=== PATIENT | male | born 1945 | race Caucasian/White ===

== ENCOUNTER 2018-01-24 14:13 | Observation (INO) ==
[2018-01-24] MEDS ORDERED: ALBUTEROL 2.5 MG/3 ML NEB RESP TX STA (15:05)
[2018-01-24 16:23] LABS: Basophils % 0.3 % (0.0-0.8); Eosinophils # 0.1 10*3/uL (0.0-0.87); Hematocrit 27.6 VOL% (42.0-52.0); Hemoglobin 8.7 GM/DL (14.0-18.0); Immature Granulocytes % 0.3 %; Immature Granulocytes Absolute 0.04 #; Lymphocytes # 0.9 10*3/uL (1.4-4.0); Lymphocytes % 8.1 % (21.2-54.2); Mean Corpuscular HGB Conc 31.5 GM/DL (32-36); Mean Corpuscular Hemoglobin 33 PG (27-34); Mean Corpuscular Volume 103.4 FL (87-102); Mean Platelet Volume 11.5 FL (9.6-12.0); Monocytes # 0.7 10*3/uL (0.11-0.8); Monocytes % 6.3 % (1.7-12.7); Neutrophils # 9.7 10*3/uL (1.4-7.4); Platelet Count 223 T/CUMM (130-400); Red Blood Count 2.67 MC/CUMM (3.8-5.5); Red Cell Distribution Width 14.9 % (9.3-17.3); White Blood Count 11.6 T/CUMM (4-12)
[2018-01-24 17:02] LABS: Albumin 3.5 G/DL (3.4-5.0); Bilirubin,Total 0.8 MG/DL (0.2-1.0); Osmolality,Calculated 286.3 MOS/KG (273-304); Potassium 4.5 MMOL/L (3.5-5.1); Total Protein 6.2 G/DL (6.4-8.3)
[2018-01-24 17:06] LABS: Apearance,Urine CLEAR (Clear); Bilirubin,Urine Negative (Negative); Blood, Urine Negative (Negative); Glucose,Urine (UA) >=500 mg/dL (Negative); Hyaline Casts,Urine 3 /LPF (0-3); Ketones,Urine Negative (Negative); Mucus,Urine Occasional /LPF (Occasional); Nitrite,Urine Negative (Negative); Protein,Urine Negative; RBC,Urine 1 /HPF (0-4); Squamous Epithelial Cell,Urine Occasional /HPF (0-10); Urine Color Yellow (Yellow); Urine Specific Gravity 1.018 (1.001-1.035); Urine Urobilinogen < 2.0 EU/DL (0.2-1.0); WBC,Urine 1 /HPF (0-6)
[2018-01-24] MEDS ORDERED: LEVOFLOXACIN INJ 500 MG in PREMIX 1 EACH IV STA (17:40)
[2018-01-24] MEDS ORDERED: ACETAMINOPHEN 325 MG TABLET PO PRN (17:43)
[2018-01-24] MEDS ORDERED: MORPHINE 4 MG/1 ML VIAL IV PRN (17:43)
[2018-01-24] MEDS ORDERED: ONDANSETRON 4 MG/2 ML VIAL IV PRN (17:43)
[2018-01-24] MEDS ORDERED: ALBUTEROL 2.5 MG/3 ML NEB RESP TX PRN (17:46)
[2018-01-24] MEDS ORDERED: GLUCAGON 1 MG VIAL IM PRN (17:48)
[2018-01-24] MEDS ORDERED: DEXTROSE 50% 25 GM/50 ML VIAL IV PRN (17:48)
[2018-01-24] MEDS: ENOXAPARIN 40 MG/0.4 ML SYRINGE SUBCUT SCH (18:50)
[2018-01-24] MEDS: SODIUM CHLORIDE 0.45% 1,000 ML IV SCH (19:00)
[2018-01-24] MEDS: ALBUTEROL 2.5 MG/3 ML NEB RESP TX SCH (19:16)
[2018-01-24] MEDS: DOCUSATE SODIUM 100 MG CAPSULE PO SCH (21:10)
[2018-01-24] MEDS ORDERED: METHOCARBAMOL 500 MG TABLET PO PRN (21:43)
[2018-01-24] MEDS ORDERED: LORATADINE 10 MG TABLET PO PRN (21:45)
[2018-01-24] MEDS ORDERED: ACETAMINOPHEN/CODEINE 300-30 MG TABLET PO PRN (21:49)
[2018-01-24] MEDS ORDERED: ZALEPLON 5 MG CAPSULE PO PRN (21:51)
[2018-01-24] MEDS ORDERED: ALBUTEROL/IPRATROPIUM 3 ML NEB RESP TX PRN (21:52)
[2018-01-24] MEDS: INSULIN LISPRO 100 UNIT/ML SUBCUT SCH (22:05)
[2018-01-24] MEDS: methylPREDNISolone SOD SUC 40 MG/1 ML VIAL IV SCH (22:26)
[2018-01-24] MEDS: SIMVASTATIN 10 MG TABLET PO SCH (22:27)
[2018-01-24] MEDS: ESCITALOPRAM 10 MG TABLET PO SCH (22:27)
[2018-01-24] MEDS: GABAPENTIN 600 MG TABLET PO SCH (22:27)
[2018-01-25] MEDS: ALBUTEROL 2.5 MG/3 ML NEB RESP TX SCH ×4 (00:22→20:14)
[2018-01-25] MEDS: INSULIN LISPRO 100 UNIT/ML SUBCUT SCH ×4 (08:52→21:09)
[2018-01-25] MEDS: ALLOPURINOL 100 MG TABLET PO SCH ×3 (08:53→21:09)
[2018-01-25] MEDS: FINASTERIDE 5 MG TABLET PO SCH (08:54)
[2018-01-25] MEDS: GABAPENTIN 600 MG TABLET PO SCH ×2 (08:54→21:08)
[2018-01-25] MEDS: LOSARTAN 50 MG TABLET PO SCH (08:54)
[2018-01-25] MEDS: DOCUSATE SODIUM 100 MG CAPSULE PO SCH ×2 (08:55→21:09)
[2018-01-25] MEDS: CYANOCOBALAMIN 100 MCG TABLET PO SCH (08:55)
[2018-01-25] MEDS: PANTOPRAZOLE 40 MG TABLET PO SCH (08:55)
[2018-01-25] MEDS: glipiZIDE 10 MG TABLET PO SCH ×2 (08:55→16:27)
[2018-01-25] MEDS: TAMSULOSIN 0.4 MG CAPSULE PO SCH (08:55)
[2018-01-25] MEDS: POTASSIUM CITRATE 10 MEQ TABLET PO SCH ×3 (08:56→16:27)
[2018-01-25] MEDS: FLUTICASONE 50 MCG NASAL SPRAY 16 GM BOTTLE BOTH NARES SCH (11:35)
[2018-01-25] MEDS: methylPREDNISolone SOD SUC 40 MG/1 ML VIAL IV SCH ×2 (11:35→21:13)
[2018-01-25] MEDS ORDERED: metFORMIN 500 MG TABLET PO SCH (17:00)
[2018-01-25] MEDS ORDERED: LEVOFLOXACIN INJ 500 MG in PREMIX 1 EACH IV SCH (18:00)
[2018-01-25] MEDS: SODIUM CHLORIDE 0.45% 1,000 ML IV SCH (18:02)
[2018-01-25] MEDS: SIMVASTATIN 10 MG TABLET PO SCH (21:09)
[2018-01-25] MEDS: ESCITALOPRAM 10 MG TABLET PO SCH (21:09)
[2018-01-25] MEDS: ENOXAPARIN 40 MG/0.4 ML SYRINGE SUBCUT SCH (21:09)
[2018-01-26] MEDS: ALBUTEROL 2.5 MG/3 ML NEB RESP TX SCH ×3 (00:55→13:30)
[2018-01-26 05:59] LABS: Basophils % 0.1 % (0.0-0.8); Hemoglobin 8.6 GM/DL (14.0-18.0); Immature Granulocytes % 0.6 %; Immature Granulocytes Absolute 0.05 #; Lymphocytes # 0.4 10*3/uL (1.4-4.0); Mean Corpuscular HGB Conc 30.7 GM/DL (32-36); Mean Corpuscular Hemoglobin 32 PG (27-34); Mean Corpuscular Volume 104.1 FL (87-102); Mean Platelet Volume 11.9 FL (9.6-12.0); Monocytes # 0.1 10*3/uL (0.11-0.8); Monocytes % 1.2 % (1.7-12.7); Neutrophils # 7.2 10*3/uL (1.4-7.4); Neutrophils % 93.1 % (38.7-73.9); Platelet Count 228 T/CUMM (130-400); Red Blood Count 2.69 MC/CUMM (3.8-5.5); Red Cell Distribution Width 14.5 % (9.3-17.3); White Blood Count 7.8 T/CUMM (4-12)
[2018-01-26 06:21] LABS: Osmolality,Calculated 294.5 MOS/KG (273-304); Potassium 4.5 MMOL/L (3.5-5.1)
[2018-01-26 06:29] LABS: Hypochromasia Slight; Lymphocytes 8 % (20-55); Platelet Estimate Normal; Segmented Neutrophils 90 % (50-85)
[2018-01-26 06:30] LABS: Total Cells Counted 100
[2018-01-26] MEDS: INSULIN LISPRO 100 UNIT/ML SUBCUT SCH ×2 (08:23→12:28)
[2018-01-26] MEDS: FINASTERIDE 5 MG TABLET PO SCH (08:24)
[2018-01-26] MEDS: CYANOCOBALAMIN 100 MCG TABLET PO SCH (08:24)
[2018-01-26] MEDS: GABAPENTIN 600 MG TABLET PO SCH (08:24)
[2018-01-26] MEDS: DOCUSATE SODIUM 100 MG CAPSULE PO SCH (08:25)
[2018-01-26] MEDS: LOSARTAN 50 MG TABLET PO SCH (08:25)
[2018-01-26] MEDS: TAMSULOSIN 0.4 MG CAPSULE PO SCH (08:25)
[2018-01-26] MEDS: PANTOPRAZOLE 40 MG TABLET PO SCH (08:25)
[2018-01-26] MEDS: glipiZIDE 10 MG TABLET PO SCH (08:26)
[2018-01-26] MEDS: ALLOPURINOL 100 MG TABLET PO SCH (08:26)
[2018-01-26] MEDS: FLUTICASONE 50 MCG NASAL SPRAY 16 GM BOTTLE BOTH NARES SCH (08:27)
[2018-01-26] MEDS: POTASSIUM CITRATE 10 MEQ TABLET PO SCH (08:27)
[2018-01-26 12:18] VITALS: BP 136/61
[2018-01-26] MEDS: methylPREDNISolone SOD SUC 40 MG/1 ML VIAL IV SCH (12:28)
== END 2018-01-26 14:00 | disposition home or self-care (01) ==
LOC: N.EDINP 14:13 → N.ED 14:13 → N.EDINP 18:58 → N.TELES 19:14
PROVIDERS: ADMIT Family Medicine; ATTEND Family Medicine

== ENCOUNTER 2022-01-31 08:40 | Observation (INO) ==
[2022-01-31 09:02] LABS: Basophils # 0.1 10*3/uL (0.0-0.2); Basophils % 0.7 % (0.0-0.8); Eosinophils # 0.2 10*3/uL (0.0-0.87); Eosinophils % 2.5 % (0.00-10.9); Hematocrit 23.6 VOL% (42.0-52.0); Hemoglobin 7.3 GM/DL (14.0-18.0); Immature Granulocytes Absolute 0.08 #; Lymphocytes # 0.4 10*3/uL (1.4-4.0); Lymphocytes % 4.4 % (21.2-54.2); Mean Corpuscular HGB Conc 30.9 GM/DL (32-36); Mean Corpuscular Volume 93.7 FL (87-102); Mean Platelet Volume 11.2 FL (9.6-12.0); Monocytes # 0.5 10*3/uL (0.11-0.8); Monocytes % 6.3 % (1.7-12.7); Neutrophils % 85.1 % (38.7-73.9); Platelet Count 374 T/CUMM (130-400); Red Blood Count 2.52 MC/CUMM (3.8-5.5); Red Cell Distribution Width 14.6 % (9.3-17.3); White Blood Count 8.2 T/CUMM (4-12)
[2022-01-31 09:21] LABS: Eosinophils 4 % (0-10); Hypochromia Slight; Lymphocytes 3 % (20-55); Microcytosis Slight; Platelet Estimate Adequate; Total Cells Counted 100
[2022-01-31 09:27] LABS: Albumin 2.6 G/DL (3.4-5.0); Bilirubin,Total 0.5 MG/DL (0.20-1.00); Calcium 9.1 MG/DL (8.5-10.1); Osmolality,Calculated 283.1 MOS/KG (273-304); Potassium 4.7 MMOL/L (3.5-5.1); Total Protein 5.7 G/DL (6.4-8.2)
[2022-01-31] MEDS ORDERED: ONDANSETRON 4 MG/2 ML VIAL IV STA (10:24)
[2022-01-31] MEDS ORDERED: HYDROmorphone 1 MG/1 ML SYRINGE IV STA (10:24)
[2022-01-31 10:26] LABS: Ferritin 417.1 ng/mL (26-388); Folate 12.23 NG/ML (5.38-24.0)
[2022-01-31 10:50] LABS: PT Patient Result 10.9 SECS (10.1-12.1)
[2022-01-31 11:55] LABS: Partial Thromboplastin Time < 20.0 SECS (23.7-32.9)
[2022-01-31] MEDS ORDERED: ONDANSETRON 4 MG/2 ML VIAL IV PRN (11:55)
[2022-01-31] MEDS ORDERED: SODIUM CHLORIDE 0.9% 1,000 ML IV PRN (11:55)
[2022-01-31] MEDS ORDERED: BACLOFEN 10 MG TABLET PO PRN (12:45)
[2022-01-31] MEDS ORDERED: BENZONATATE 100 MG CAPSULE PO PRN (12:45)
[2022-01-31] MEDS ORDERED: diphenhydrAMINE CAP 25 MG CAPSULE PO PRN (12:45)
[2022-01-31] MEDS: SODIUM CHLORIDE 0.9% 1,000 ML IV SCH ×2 (13:51→21:29)
[2022-01-31] MEDS ORDERED: ALBUTEROL 2.5 MG/3 ML NEB RESP TX PRN (15:00)
[2022-01-31] MEDS: allopurinoL 100 MG TABLET PO SCH ×2 (15:28→21:31)
[2022-01-31] MEDS: glipiZIDE 10 MG TABLET PO SCH (16:51)
[2022-01-31] MEDS ORDERED: GLUCAGON 1 MG VIAL IM PRN (19:04)
[2022-01-31] MEDS ORDERED: SIMVASTATIN 40 MG TABLET PO SCH (21:00)
[2022-01-31] MEDS ORDERED: ZALEPLON 5 MG CAPSULE PO PRN (21:00)
[2022-01-31] MEDS ORDERED: FLUTICASONE 50 MCG NASAL SPRAY 16 GM BOTTLE BOTH NARES PRN (21:00)
[2022-01-31] MEDS: ACETAMINOPHEN 325 MG TABLET PO PRN (21:29)
[2022-01-31] MEDS: DOCUSATE SODIUM 100 MG CAPSULE PO SCH (21:29)
[2022-01-31] MEDS: GABAPENTIN 600 MG TABLET PO SCH (21:31)
[2022-02-01] MEDS: INSULIN REGULAR 100 UNIT/ML SUBCUT SCH ×3 (00:24→12:22)
[2022-02-01 05:07] LABS: Basophils % 0.3 % (0.0-0.8); Eosinophils # 0.1 10*3/uL (0.0-0.87); Eosinophils % 1.5 % (0.00-10.9); Hematocrit 32.2 VOL% (42.0-52.0); Immature Granulocytes % 0.7 %; Immature Granulocytes Absolute 0.06 #; Lymphocytes # 0.3 10*3/uL (1.4-4.0); Mean Corpuscular HGB Conc 31.1 GM/DL (32-36); Mean Corpuscular Volume 92.5 FL (87-102); Mean Platelet Volume 11.2 FL (9.6-12.0); Monocytes # 0.7 10*3/uL (0.11-0.8); Monocytes % 7.3 % (1.7-12.7); Neutrophils % 87.2 % (38.7-73.9); Platelet Count 420 T/CUMM (130-400); Red Blood Count 3.48 MC/CUMM (3.8-5.5); Red Cell Distribution Width 15.9 % (9.3-17.3); White Blood Count 9.2 T/CUMM (4-12)
[2022-02-01 05:28] LABS: Eosinophils 2 % (0-10); Hypochromia Slight; Lymphocytes 4 % (20-55); Microcytosis Slight; Platelet Estimate Adequate; Total Cells Counted 100
[2022-02-01] MEDS: ACETAMINOPHEN 325 MG TABLET PO PRN (05:58)
[2022-02-01] MEDS: SODIUM CHLORIDE 0.9% 1,000 ML IV SCH ×2 (06:02→16:25)
[2022-02-01] MEDS: glipiZIDE 10 MG TABLET PO SCH (08:33)
[2022-02-01] MEDS: GABAPENTIN 600 MG TABLET PO SCH (08:33)
[2022-02-01] MEDS: allopurinoL 100 MG TABLET PO SCH ×2 (08:34→16:26)
[2022-02-01] MEDS: DOCUSATE SODIUM 100 MG CAPSULE PO SCH (08:34)
[2022-02-01] MEDS ORDERED: TAMSULOSIN 0.4 MG CAPSULE PO SCH (09:00)
[2022-02-01] MEDS ORDERED: PANTOPRAZOLE 40 MG TABLET PO SCH (09:00)
[2022-02-01] MEDS ORDERED: FINASTERIDE 5 MG TABLET PO SCH (09:00)
[2022-02-01] MEDS ORDERED: FERROUS SULFATE 325 MG TABLET PO SCH (09:00)
[2022-02-01] MEDS ORDERED: LORATADINE 10 MG TABLET PO SCH (09:00)
[2022-02-01] MEDS ORDERED: INSULIN GLARGINE 100 UNIT/ML SUBCUT SCH (09:00)
[2022-02-01] MEDS ORDERED: metFORMIN 500 MG TABLET PO SCH (09:00)
[2022-02-01] MEDS ORDERED: LOSARTAN 50 MG TABLET PO SCH (09:00)
[2022-02-01] MEDS ORDERED: MONTELUKAST 10 MG TABLET PO SCH (09:00)
[2022-02-01 12:00] VITALS: BP 127/66
[2022-02-01] MEDS ORDERED: TUBERCULIN SKIN TEST 0.1 ML SYRINGE INTRADERM ONE (13:45)
[2022-02-01] MEDS ORDERED: ZINC OXIDE PASTE 113 GM TUBE TOP PRN (14:01)
[2022-02-01 14:10] LABS: Bilirubin,Urine Negative (Negative); Blood, Urine Negative (Negative); Glucose,Urine (UA) Negative (Negative); Ketones,Urine Negative (Negative); Mucus,Urine Occasional /LPF (Occasional); Nitrite,Urine Negative (Negative); Protein,Urine Negative (Negative); RBC,Urine 2 /HPF (0-4); Squamous Epithelial Cell,Urine Occasional /HPF (0-10); Urine Appearance CLEAR (Clear); Urine Color Yellow (Yellow); Urine Specific Gravity 1.015 (1.001-1.035); Urine Urobilinogen < 2.0 eU/dL (<2.0)
[2022-02-02] MEDS ORDERED: INSULIN GLARGINE 100 UNIT/ML SUBCUT SCH (09:00)
== END 2022-02-01 16:28 | disposition home health service (06) ==
LOC: N.EDINP 08:40 → N.ED 08:40 → N.EDINP 11:36 → N.2W 11:53
PROVIDERS: ADMIT Family Medicine; ATTEND Family Medicine